=== PATIENT | female | born 1955 | race Caucasian/White ===

== ENCOUNTER → 2016-08-27 | Outpatient (CLI) | payer OTHER ==
--- NOTE | 2016-08-27 14:30 | MM ---
Reason for exam: screening (asymptomatic). Baseline mammogram. History: Patient is postmenopausal. Benign excisional biopsy of the left breast, 1986. Physical Findings: Nurse did not find any significant physical abnormalities on exam. MG Screening Mammo w CAD Bilateral CC and MLO view(s) were taken. The breast tissue is heterogeneously dense. This may lower the sensitivity of mammography. Finding: There are typically benign round calcifications in both breasts. There is no discrete abnormality. These results were verbally communicated with the patient and result sheet given to the patient on 08/27/16. ASSESSMENT: Benign, BI-RAD 2 RECOMMENDATION: Routine screening mammogram of both breasts in 1 year.
--- NOTE | 2016-08-28 16:07 | BD ---
EXAMINATION TYPE: MG DEXA axial skeleton. DATE OF EXAM: 08/27/2016 2:33 PM COMPARISON: NONE CLINICAL HISTORY: Z78.0 ASYMPTOMATIC MENOPAUSAL STATE Height: 64 Weight: 112 FRAX RISK QUESTIONS: Alcohol (3 or more units per day): NO Family History (Parent hip fracture): NO Glucocorticoids (More than 3mos): NO (Ex: prednisone, prednisolone, methylprednisolone, dexamethasone, and hydrocortisone). History of Fracture in Adulthood: NO Secondary Osteoporosis: NO 1. Type 1 Diabetes: NO 2. Hyperthyroidism: NO 3. Menopause before 45: YES 4. Malnutrition: YES, ANOREXIA 5. Chronic liver disease: NO Rheumatoid Arthritis: NO Current Tobacco Use: YES RISK FACTORS HISTORY OF: Family History of Osteoporosis: NO Smoke tobacco: YES, 1 PAC DAILY Drink Alcohol: NO Active: YES Diet low in dairy products/other sources of calcium: YES, LACTOSE INTOLERANT Postmenopausal woman: YES, 32-34 YRS OLD Adrenal Insufficiency: NO MEDICATIONS: Additional Medications: NONE Additional History: ANOREXIA EXAM MEASUREMENTS: Bone mineral densitometry was performed using the [employer]. Bone mineral density as measured about the Lumbar spine is: ----- L1-L4(G/cm2): 1.166 T Score Values are as follows: ----- L1: -1.1 ----- L2: -1.0 ----- L3: 0.6 ----- L4: 0.7 ----- L1-L4: -0.1 Bone mineral density THIS IS THE FIRST BONE DENSITY TEST FOR HER......BASELINE Bone mineral density about the R hip (g/cm2): 0.742 Bone mineral density about the L hip (g/cm2): 0.773 T Score values are as follows: -----R Neck: -2.0 -----L Neck: -2.0 -----R Intertrochanter: -2.5 -----L Intertrochanter: -2.5 Bone mineral density THIS IS THE FIRST BONE DENSITY STUDY FOR HER.....BASELINE FRAX %'S: 9.0% FOR MAJOR OSTEOPOROTIC FX AND 2.1% FOR HIP FX.......PROBABILITY OF FX IN 10 YRS TI ME IMPRESSION: Osteopenia (T Score between -2.5 and -1 as noted by T score values There is slightly increased risk of fracture and the patient may be considered for treatment. Re-Screen 1-2 years. FOR BOTH OF HER HIPS..... NOTE: T-SCORE=SD OF THE YOUNG ADULT MEAN.
== END | disposition home or self-care (01) ==
LOC: RADMAMWWP 13:41
PROVIDERS: ATTEND Family Medicine
DX: Z12.31 Encounter for screening mammogram for malignant neoplasm of breast (principal); M85.852 Other specified disorders of bone density and structure, left thigh; M85.851 Other specified disorders of bone density and structure, right thigh; Z78.0 Asymptomatic menopausal state
CPT/HCPCS: 77080; G0202

== ENCOUNTER → 2019-04-16 | Outpatient (CLI) | payer OTHER ==
[2019-04-16 17:06] LABS: Basophils % (A) 1 %; Eosinophils # (A) 0.1 k/uL (0-0.7); Eosinophils % (A) 1 %; HCT 37.1 % (34.0-46.0); HGB 12.4 gm/dL (11.4-16.0); Lymphocytes # (A) 1.7 k/uL (1.0-4.8); Lymphocytes % (A) 40 %; MCH 32.1 pg (25.0-35.0); MCHC 33.5 g/dL (31.0-37.0); Mean Platelet Volume 7.1; Monocytes # (A) 0.2 k/uL (0-1.0); Monocytes % (A) 5 %; Neutrophils # (A) 2.2 k/uL (1.3-7.7); Neutrophils % (A) 51 %; Platelet Count 220 k/uL (150-450); RBC 3.86 m/uL (3.80-5.40); RDW 13.3 % (11.5-15.5); WBC 4.3 k/uL (3.8-10.6)
[2019-04-16 22:57] LABS: African American GFR (CKD) 90.3 (60.0-200.0); Albumin 4.3 g/dL (3.80-4.90); Albumin/Globulin Ratio 2.39 (1.60-3.17); Anion Gap 4.9 mmol/L (4.00-12.00); BUN/Creat Ratio 13.75 Ratio (12.00-20.00); Calcium 9.2 mg/dL (8.7-10.3); Carbon Dioxide 28.1 mmol/L (21.6-31.8); Chol/HDL Ratio 2.14; Globulin 1.8 g/dL (1.6-3.3); LDL Cholesterol,Calculated 81.4 mg/dL (0.0-131.0); Potassium 4.8 mmol/L (3.5-5.5); Total Bilirubin 0.6 mg/dL (0.3-1.2); Total Protein 6.1 g/dL (6.2-8.2); VLDL Calculation 10.6 mg/dL (5.00-40.00)
== END | disposition home or self-care (01) ==
LOC: LABWHC1 15:52
PROVIDERS: ATTEND Family Medicine
DX: E78.5 Hyperlipidemia, unspecified (principal)
CPT/HCPCS: 36415; 80053; 80061; 84443; 85025